=== PATIENT | female | born 2000 | race Caucasian/White ===

== ENCOUNTER 2018-12-10 03:15 | Inpatient (IN) | payer BC ==
--- NOTE | 2018-12-10 03:41 | PN ---
Progress Note - Progress Note Date of Service: 12/10/18 Note: S: Reports contractions beginning about 1:30am. Uncomfortable, breathing through UCs. Reports active FM O: B/P: 131/94, P: 77, R: 20, T: 97.9 FHR: baseline 125, moderate variability, +accelerations, no decelerations UCs: q 1.5-3, moderate to palpation VE: 2.5/70/-2, posterior A: IUP at 39 3/7 weeks Category I FHR, no evidence of metabolic acidemia Early labor vs false labor P: Will reassess in 2 hrs or sooner as indicated RN at bedside encouraging position changes, tub
[2018-12-10] MEDS ORDERED: Lactated Ringers 1000 ML Bag* 1,000 ML IV ONE ×2 (05:27→07:57)
[2018-12-10] MEDS ORDERED: Buffered Lidocaine 1% SYRIN* 1 ML/SYRINGE INTRADERM ONE (05:27)
[2018-12-10] MEDS ORDERED: Promethazine INJ(RESTRICTED)* 25 MG/ML 1 ML VIAL IV ONE (05:30)
[2018-12-10] MEDS ORDERED: Nalbuphine* 10 MG/ML 1 ML VIAL IV ONE (05:30)
--- NOTE | 2018-12-10 05:32 | HP ---
General Information - Reason for Visit at 39 3/7 weeks with contractions - General Information Maternal Age: 18 Grav: 1 Para: 0 SAB: 0 IEA: 0 Estimated Due Date: 12/14/18 Determined By: Early Ultrasound Maternal Blood Type and Rh: O Positive - Results this Serology/RPR Result: Non-Reactive Rubella Result: Immune HBsAg Result: Negative HIV Result: Negative GBS Culture Result: Negative Past Medical History Delivery History Comment: no prior deliveries Pertinent Past Medical History: See Records Past Medical History Comment: Anxiety/Depression: on Effexor, working with therapist Pertinent Past Surgical History: None Pertinent Family History: Non-Contributory - Antepartal Records Antepartal Records: Reviewed, Complicated by: - Depression/anxiety, positive UDS for THC in early Review of Systems Constitutional: Uncomfortable CV Complaint: No Respiratory: Shortness of Breath: No Gastrointestinal: No Nausea/Vomiting, Normal Bowel Movement Genitourinary: No Dysuria, No Bleeding, No Leaking Fluid Musculoskeletal: No Epigastric Pain, Contractions Neurological: No Headache, No Visual Changes Movement: Normal Exam Allergies/Adverse Reactions: Allergies chlorpromazine [From Thorazine] Allergy (Verified 12/10/18 04:12) See Comment orthostatic hypotension and dizziness B/P: 131/94, P: 77, R: 18, T: 97.9 - Measurements Height: 5 ft 2 in Weight: 149 lb Weight in lbs: 149.248576 Body Mass Index (BMI): 27.2 Pre- Weight: 110 lb Weight Gained This : 39 lbs and 0 ozs - Exam Breast: Breast Exam Deferred CVA: No CVA Tenderness Extremities: No Edema Heart: Normal Rhythm/Heart Sounds HEENT: No Significant Findings Lungs: Clear Bilaterally Reflexes: DTR 2+ Thyroid: No Thyromegaly - Abdominal Exam Abdomen Exam: Non-Tender, Fundal Height Consistent with Dates - Ultrasound/Biophysical Profile Ultrasound Status: Not Done Targeted Exam Findings Estimated Weight: 7.5 lb by megha Cervical Exam: 3cm Effacement: 90% Station: -2 Presenting Part: Vertex Membrane Status: Bulging Bleeding/Discharge: None EFM Findings - External Monitor Findings Baseline Heart Rate: 130 External Monitor Findings: Accelerations Present, No Pattern of Variable or Late Decelerations, Variability Moderate, Baseline Stable Contractions: Regular, Moderate, 45-90 Seconds Contraction Frequency: 2-4 min Assessment/Plan - Assessment A: IUP at 39 3/7 weeks Category I FHR, no evidence of metabolic acidemia Early labor GBS negative P: Admit to inpatient Pt desires pain relief, plans epidural eventually. Will give nubain/ phenergan for therapeutic rest now Draw CBC/Type & Screen, initiate IV access Reassess PRN Anticipate SVB
[2018-12-10 05:54] LABS: Hematocrit 40 % (35-47); Hemoglobin 13.3 g/dL (12.0-16.0); Mean Corpuscular HGB Conc 34 g/dL (31-36); Mean Corpuscular Hemoglobin 30 pg (27-31); Mean Corpuscular Volume 88 fL (80-97); Mean Platelet Volume 8.6 fL (7.4-10.4); Platelet Count 177 10^3/uL (150-450); Red Blood Count 4.49 10^6 /uL (3.70-4.87); Red Cell Distribution Width 14 % (10.5-15); White Blood Count 9.5 10^3/uL (3.5-10.8)
[2018-12-10] MEDS ORDERED: Lactated Ringers 1000 ML Bag* 1,000 ML IV SCH ×3 (06:00→16:00)
--- NOTE | 2018-12-10 07:04 | PN ---
Progress Note - Progress Note Date of Service: 12/10/18 Note: Quick note: Received nubain/phenergan for therapeutic rest, SROM to clear fluid around 0600 per RN. Patient now sleeping, VE deferred.
[2018-12-10] MEDS ORDERED: OBEPIDURAL* 250 ML EPIDURAL ONE (07:31)
[2018-12-10] MEDS ORDERED: Sodium Citrate/Citric Acid* 15 ML UDC PO PRN (07:57)
[2018-12-10] MEDS ORDERED: Famotidine TAB* 20 MG PO PRN (07:57)
[2018-12-10] MEDS ORDERED: Phenylephrine 40 MCG/ML SYRINGE IV PUSH PRN ×2 (07:57)
[2018-12-10] MEDS ORDERED: OBEPIDURAL* 250 ML EPIDURAL SCH (08:00)
--- NOTE | 2018-12-10 08:47 | PN ---
Progress Note - Progress Note Date of Service: 12/10/18 SOAP: Subjective: Pt comfortable with epidural, sleepy. Mother at bedside. FOB heading up from [place] , pt states she is okay with him being there, but not "if he starts making it all about himself." Plan made with pt and her mother that if pt wants him out of the room, she will state that she wants to be checked, and we will ask him to step out to give her a chance to express her preferences in private. Objective: Cervical exam deferred Fluid clear FHR baseline 120, moderate variability, + accels, no decels, moderate variability UCs, every 1-2 minutes, lasting 40 seconds BP 104/66 Assessment: Pt comfortable with epidural, no evidence of chorioamnionitis or acidemia. Contraction pattern somewhat atypical. Plan: Monitor ctx pattern and FHR. Will recheck in a few hours or as needed. Anticipate .
--- NOTE | 2018-12-10 12:17 | PN ---
Progress Note - Progress Note Date of Service: 12/10/18 SOAP: Subjective: Pt continues to feel comfortable. Mother at bedside. Objective: Cervix: fully dilated, +1-2, vtx FHR: Category I Assessment: Fully dilated, no urge to push, no evidence of acidemia or chorioamnionitis Plan: Initiate pushing, anticipate .
--- NOTE | 2018-12-10 13:49 | PN ---
Progress Note - Progress Note Date of Service: 12/10/18 Note: Pt pushing with ctx with slow but steady descent. FHR Category 1. Temp 99.4. UCs Q 3-4 minutes. Anticipate .
[2018-12-10] MEDS ORDERED: Oxytocin in LR* 20 UNITS/1,000 ML BAG IVPB ONE (14:35)
[2018-12-10] MEDS ORDERED: Witch Hazel PAD* JAR TOPICAL PRN (15:01)
[2018-12-10] MEDS ORDERED: Dibucaine 1% 28.35 GM TUBE PR PRN (15:01)
[2018-12-10] MEDS ORDERED: Acetaminophen TAB* 325 MG PO PRN (15:01)
[2018-12-10] MEDS ORDERED: Tetan/Diph/Pertus SYR(Tdap)* 0.5 ML SYR(BOOSTRIX) use SYR IM ONE (15:01)
[2018-12-10] MEDS ORDERED: Glycerin ADULT SUPP PR PRN (15:01)
--- NOTE | 2018-12-10 15:25 | PROCNOTE ---
[facility]: Delivery Note - Delivery A Date of : 12/10/18 Time of : 14:30 Lavina Sex: Female Weight at : 2.96 kg Score 1 Minute: 8 Score 5 Minutes: 9 Gestational Age in Weeks and Days at Delivery: 39 Weeks and 3 Days Delivery Method: Spontaneous Vaginal Labor: Spontaneous Did Patient attempt ?: N/A, No Previous Amniotic Fluid: Clear Estimated Blood Loss: 400 Anesthesia/Analgesia: CEI for Labor Delivered By: Inna Harper - Nursery Level of Nursery: Regular/Bedside - Perineum Perineal Injury: 2nd Degree Perineal Repair: By Delivering Practioner - Events Delivery Events of Note: Pitocin Only After Delivery - Additional Delivery Notes Additional Delivery Notes: Pt admitted to L&D in active labor. She initially received Nubain and Phenergan for pain relief before requesting and receiving an epidural with good relief. Pt made steady progress. At complete dilation pushing initiated. Pt coached with pushing and made slow but steady descent. Pt eventually brought infant to and was coached through slow, controlled delivery of head. Shoulders followed easily and infant placed on maternal abdomen with vigorous cry, good tone, HR> 100. After pulsation ceased cord clamped x2 and cut by 's grandmother. Placenta soon delivered with gentle cord traction, darnell side. Pitocin initiated via IV. Large clot expressed with fundal massage, after which bleeding was minimal. Inspection of the perineum revealed second degree laceration, repaired using 3-0 Rapide suture resulting in good hemostasis and tissue approximation. Pt and infant stable at this time, anticipate normal course.
[2018-12-10] MEDS ORDERED: Oxytocin in LR* 20 UNITS/1,000 ML BAG IVPB SCH (16:00)
[2018-12-10] MEDS: Ibuprofen TAB* 600 MG PO PRN (18:11)
[2018-12-10] MEDS: Docusate CAP* 100 MG PO SCH (21:48)
[2018-12-11] MEDS: Ibuprofen TAB* 600 MG PO PRN ×3 (04:02→21:19)
[2018-12-11 07:05] LABS: ABS Eosinophils 0.1 10^3/ul (0-0.6); ABS Lymphocytes 3.2 10^3/ul (1.0-4.8); ABS Monocytes 1.1 10^3/ul (0-0.8); ABS Neutrophils 8.8 10^3/ul (1.5-7.7); Eosinophil % 0.6 %; Hematocrit 32 % (35-47); Hemoglobin 10.5 g/dL (12.0-16.0); Lymphocyte % 24.1 %; Mean Corpuscular HGB Conc 33 g/dL (31-36); Mean Corpuscular Hemoglobin 29 pg (27-31); Mean Corpuscular Volume 89 fL (80-97); Mean Platelet Volume 8.4 fL (7.4-10.4); Platelet Count 140 10^3/uL (150-450); Red Cell Distribution Width 14 % (10.5-15); White Blood Count 13.2 10^3/uL (3.5-10.8)
[2018-12-11] MEDS ORDERED: Ferrous Gluconate TAB* 324 MG TAB PO SCH (09:00)
[2018-12-11] MEDS: Docusate CAP* 100 MG PO SCH ×3 (09:31→21:20)
[2018-12-11] MEDS ORDERED: Venlafaxine EXT RELEASE CAP* 75 MG PO SCH (21:00)
[2018-12-12] MEDS: Docusate CAP* 100 MG PO SCH (08:37)
[2018-12-12] MEDS: Ibuprofen TAB* 600 MG PO PRN (08:37)
[2018-12-12 08:58] VITALS: BP 128/81
--- NOTE | 2018-12-12 11:01 | PTEDU ---
Patient Name: QUETA OLIVARES QUETA OLIVARES selected video: Never Ever Shake a Baby to view on 12/12/2018 at 11:01:01 AM from [facility] [id number]
--- NOTE | 2018-12-12 11:10 | PTEDU ---
Patient Name: QUETA OLIVARES QUETA OLIVARES selected video: BBOB: Bonding Through Infant Massage to view on 12/12/2018 at 11:10:1 5 AM [id number]
== END 2018-12-12 12:40 | disposition home or self-care (01) | DRG 560 ==
LOC: MCHOBOUT 03:15 → MCHOB 05:31
PROVIDERS: ADMIT Midwife; ATTEND Midwife
PROC: 10E0XZZ Delivery of Products of Conception, External Approach (ICD-10-PCS; principal; 2018-12-10)
PROC: 0KQM0ZZ Repair Perineum Muscle, Open Approach (ICD-10-PCS; 2018-12-10)
DX: O99.344 Other mental disorders complicating childbirth (principal); Z37.0 Single live birth; F41.8 Other specified anxiety disorders; O70.1 Second degree perineal laceration during delivery; Z3A.39 39 weeks gestation of pregnancy
CPT/HCPCS: 36415; 85025; 85027; 86850; 86900; 86901; 90715; A9270-GY; J2300; J2550

== ENCOUNTER 2019-09-27 17:20 | Emergency (ER) | payer BC ==
[2019-09-27 17:31] VITALS: BP 107/68
--- NOTE | 2019-09-27 19:09 | UC ---
FLU HPI - HPI Summary HPI Summary: 19-year-old female presenting with dry cough, nasal congestion and body aches, chills 3 days. Denies sore throat. Denies shortness breath and wheezing. Denies nausea and vomiting. Denies fevers. Denies changes in appetite. Patient states she thinks they are "just cold symptoms" but that she would like to be tested for the flu because her younger brother had it recently. - History of Current Complaint Chief Complaint: UCRespiratory Stated Complaint: BODYACHES/COUGH Hx Obtained From: Patient Hx Last Menstrual Period: 02/2018 Pain Intensity: 2 Pain Scale Used: 0-10 Numeric - Allergy/Home Medications Allergies/Adverse Reactions: Allergies Allergy/AdvReac Type Severity Reaction Status Date / Time chlorpromazine Allergy See Comment Verified 09/27/19 17:31 [From Thorazine] Home Medications: Home Medications Venlafaxine CAP (NF) [Effexor CAP (NF)] 75 mg PO DAILY 12/10/18 [History Confirmed 09/27/19] Acetaminophen TAB* [Tylenol TAB*] 650 mg PO Q4H PRN tab 12/12/18 [Rx Confirmed 09/27/19] Ibuprofen TAB* [Motrin TAB* 600 MG] 600 mg PO Q6H PRN tab 12/12/18 [Rx Confirmed 09/27/19] Diphenhydra/Phenyleph/Acetamin [Cold & Flu Relief Multi-Sym Lq] 180 ml PO Q12HR 09/27/19 [History Confirmed 09/27/19] PMH/Surg Hx/FS Hx/Imm Hx Previously Healthy: Yes - Surgical History Surgical History: None - Family History Known Family History: Positive: Other Family History: Brother - ADHD. Biological father - EtOH dependence. M/F - anxiety. - Social History Alcohol Use: None Alcohol Amount: per prenatals none since Substance Use Type: None Substance Use Comment - Amount & Last Used: Pt. reports having used 2 or 3 times since last March Smoking Status (MU): Former Smoker - Immunization History Most Recent Influenza Vaccination: fall Most Recent Pneumonia Vaccination: never Review of Systems All Other Systems Reviewed And Are Negative: Yes Constitutional: Positive: Chills ENT: Positive: Sinus Congestion Respiratory: Positive: Cough. Negative: Shortness Of Breath Cardiovascular: Positive: Negative Gastrointestinal: Positive: Negative Musculoskeletal: Positive: Myalgia Neurological/Mental Status: Positive: Negative Physical Exam - Summary Physical Exam Summary: Vital Signs Reviewed: Yes A+Ox3, no distress, well-appearing Eyes: Conjunctiva Clear ENT: Hearing grossly normal, TM x 2 clear, moist, uvula midline, no exudate, no erythema Neck: Positive: Supple Respiratory: Positive: No respiratory distress, No accessory muscle use + CTA throughout no w/r Cardiovascular: RRR nl s1, s2 no m/r Musculoskeletal Exam: HARRY x 4 without difficulty Neurological: Positive: Alert Psychological: Positive: age appropriate behavior Skin: Positive: no rash, no ecchymosis Vital Signs: Initial Vital Signs Temp 98 F 09/27/19 17:25 Pulse 76 09/27/19 17:25 Resp 12 09/27/19 17:25 BP 107/68 09/27/19 17:25 Pulse Ox 98 09/27/19 17:25 Lab Results 09/27/19 Range/Units 19:16 Influenza B (Rapid) Positive H (Negative) Flu Course/Dx - Course Course Of Treatment: Positive influenza B. I discussed influenza and symptomatic treatment with patient. Instructed to continue to get plenty of rest and fluids and to follow up with PCP or [facility] if symptoms persist. Instructed to go to ED with any new or worsening symptoms. Patient voiced understanding and agree with treatment plan. - Differential Dx/Diagnosis Differential Diagnosis/HQI/PQRI: Influenza, Upper Respiratory Infection Provider Diagnosis: Influenza B Discharge ED - Sign-Out/Discharge Documenting (check all that apply): Patient Departure All imaging exams completed and their final reports reviewed: No Studies - Discharge Plan Condition: Stable Disposition: HOME Patient Education Materials: Influenza (ED) Referrals: [facility] [Outside] Additional Instructions: As discussed, you tested positive for influenza B today. Your symptoms should resolve over time without treatment. You may continue with [id number] cold and flu medications as directed. Get plenty of rest and increase your fluid intake. Follow up with your primary care provider or the [facility] clinic listed below if symptoms do not improve within 5-7 days. - Billing Disposition and Condition Condition: STABLE Disposition: Home
[2019-09-27 19:23] LABS: Influenza B Molecular POSITIVE (Negative)
== END 2019-09-27 19:45 | disposition home or self-care (01) ==
LOC: UCEAST 17:20
DX: J10.1 Influenza due to other identified influenza virus with other respiratory manifestations (principal); Z88.8 Allergy status to other drugs, medicaments and biological substances; Z87.891 Personal history of nicotine dependence
CPT/HCPCS: 99211; G0463

== ENCOUNTER 2021-12-18 14:23 | Inpatient (IN) ==
[2021-12-18 16:45] LABS: Urine Benzodiazepine Screen Presumptive Positive (None Detect); Urine Cannabinoids Screen Presumptive Positive (None Detect); Urine Opiates Screen None Detected (None Detect)
[2021-12-18] MEDS ORDERED: Nicotine PATCH 21 MG/24 HR PATCH TRANSDERM ONE (20:38)
[2021-12-18] MEDS ORDERED: Nicotine GUM 2MG FRUIT FLAVOR PO PRN ×2 (20:38→23:00)
[2021-12-18] MEDS ORDERED: Al Hydrox/Mg Hydrox/Simet LIQ 30 ML UDC PO PRN (22:17)
[2021-12-19] MEDS: Vitamin THERAPEUTIC TAB PO SCH (07:36)
[2021-12-19] MEDS: Nicotine PATCH 21 MG/24 HR PATCH TRANSDERM SCH (08:15)
[2021-12-19] MEDS ORDERED: Venlafaxine XR 75 mg PO SCH (09:00)
[2021-12-20] MEDS: Nicotine PATCH 21 MG/24 HR PATCH TRANSDERM SCH (07:25)
[2021-12-20] MEDS: Vitamin THERAPEUTIC TAB PO SCH (07:26)
[2021-12-20 08:08] VITALS: BP 105/72
[2021-12-20] MEDS ORDERED: Venlafaxine XR 75 mg PO SCH (09:00)
== END 2021-12-20 14:00 | disposition home or self-care (01) | DRG 754 ==
LOC: ED 14:23 → BSU 20:10
PROVIDERS: ADMIT Psychiatry & Neurology Psychiatry; ATTEND Psychiatry & Neurology Psychiatry

== ENCOUNTER 2023-10-29 17:47 | Inpatient (IN) ==
[2023-10-29 19:28] LABS: Urine Appearance Clear; Urine Bilirubin Negative (Negative); Urine Blood Negative (Negative); Urine Color Colorless; Urine Glucose Negative (Negative); Urine Ketones Negative (Negative); Urine Nitrite Negative (Negative); Urine Protein Negative (Negative); Urine Specific Gravity 1.003 (1.002-1.030); Urine Urobilinogen Negative (Negative); Urine pH 6.5 (5.0-8.0)
[2023-10-29 19:44] LABS: ABS Basophils 0.1 10^3/uL (0.0-0.1); ABS Eosinophils 0.1 10^3/uL (0.0-0.5); ABS Lymphocytes 2.6 10^3/uL (1.0-4.8); ABS Monocytes 0.8 10^3/uL (0.0-0.9); ABS Neutrophils 6.4 10^3/uL (1.5-7.6); ABS Nucleated RBC 0.01 10^3/ul; Eosinophil % 1.1 %; Hematocrit 38.4 % (35-45); Lymphocyte % 26.2 %; Mean Corpuscular Hemoglobin 33.9 pg (27-33); Mean Corpuscular Hgb Conc 33.8 g/dL (31-36); Mean Corpuscular Volume 100.1 fL (80-97); Mean Platelet Volume 6.8 fL (7.5-11.2); Nucleated Red Blood Cells % 0.1 %/100WBC (0.0-0.8); Platelet Count 274 10^3/uL (150-450); Red Blood Count 3.83 10^6/uL (3.63-4.92); Red Cell Distribution Width 13.6 % (12-17); White Blood Count 9.9 10^3/uL (3.8-11.8)
[2023-10-29 20:02] LABS: Urine Benzodiazepine Screen None Detected (None Detect); Urine Cannabinoids Screen Presumptive Positive (None Detect); Urine Opiates Screen None Detected (None Detect)
[2023-10-29] MEDS: Nicotine PATCH 21 MG/24 HR PATCH TRANSDERM ONE (20:14)
[2023-10-29] MEDS: DULoxetine DR 60 mg CAP PO ONE (20:20)
[2023-10-29 20:27] LABS: ALT 15 U/L (7-52); AST 15 U/L (13-39); Acetaminophen < 15 mcg/mL; Albumin 3.9 g/dL (3.2-5.2); Albumin/Globulin Ratio 1.9 (1-3); Alcohol, S < 13 mg/dL (<13); Alkaline Phosphatase 58 U/L (35-149); Anion Gap 3 mmol/L (2-16); Blood Urea Nitrogen 6 mg/dL (6-24); CO2 Carbon Dioxide 33 mmol/L (22-32); Calcium 9.4 mg/dL (8.6-10.3); Chloride 101 mmol/L (101-111); Globulin 2.1 g/dL (2-4); Glucose 90 mg/dL (70-100); Potassium 4.1 mmol/L (3.5-5.0); Salicylate < 2.50 mg/dL (<30); Sodium 137 mmol/L (135-145); Total Bilirubin 0.2 mg/dL (0.2-1.0)
[2023-10-29 20:41] LABS: TSH Ultra Thyroid Stim Horm 1.63 mcIU/mL (0.34-5.60)
[2023-10-30] MEDS ORDERED: Al Hydrox/Mg Hydrox/Simet LIQ 30 ML UDC PO PRN (01:20)
[2023-10-30] MEDS ORDERED: Nicotine GUM 2MG FRUIT FLAVOR PO PRN (02:00)
[2023-10-30] MEDS: Vitamin THERAPEUTIC TAB PO SCH (14:58)
[2023-10-30] MEDS: Nicotine PATCH 21 MG/24 HR PATCH TRANSDERM SCH (18:43)
[2023-10-30] MEDS: DULoxetine DR 60 mg CAP PO SCH (20:25)
[2023-10-31 08:36] LABS: HDL Cholesterol 61.2 mg/dL
[2023-10-31 20:51] VITALS: BP 130/94
== END 2023-11-03 10:56 | disposition home or self-care (01) | DRG 751 ==
LOC: ED 17:47 → BSU 10-30 00:05
PROVIDERS: ADMIT Psychiatry & Neurology Psychiatry; ATTEND Psychiatry & Neurology Psychiatry

== ENCOUNTER 2023-11-14 18:35 | Inpatient (IN) ==
[2023-11-14 20:26] LABS: Urine Appearance Turbid; Urine Bilirubin Negative (Negative); Urine Blood Negative (Negative); Urine Color Yellow; Urine Glucose Negative (Negative); Urine Ketones 1+ (Negative); Urine Nitrite 2+ (Negative); Urine Protein 1+ (>=30 mg/dL) (Negative); Urine Specific Gravity 1.024 (1.002-1.030); Urine Urobilinogen Negative (Negative); Urine pH 6.5 (5.0-8.0)
[2023-11-14 20:28] LABS: ABS Eosinophils 0.1 10^3/uL (0.0-0.5); ABS Lymphocytes 2.4 10^3/uL (1.0-4.8); ABS Monocytes 0.8 10^3/uL (0.0-0.9); ABS Neutrophils 5.6 10^3/uL (1.5-7.6); ABS Nucleated RBC 0.01 10^3/ul; Hematocrit 40.9 % (35-45); Hemoglobin 13.7 g/dL (11.5-14.3); Lymphocyte % 27.1 %; Mean Corpuscular Hemoglobin 32.8 pg (27-33); Mean Corpuscular Hgb Conc 33.4 g/dL (31-36); Mean Corpuscular Volume 98.5 fL (80-97); Mean Platelet Volume 6.6 fL (7.5-11.2); Nucleated Red Blood Cells % 0.1 %/100WBC (0.0-0.8); Platelet Count 318 10^3/uL (150-450); Red Blood Count 4.16 10^6/uL (3.63-4.92); Red Cell Distribution Width 13.2 % (12-17); White Blood Count 8.9 10^3/uL (3.8-11.8)
[2023-11-14 20:29] LABS: Urine Bacteria 1+ /HPF (Absent); Urine Red Blood Cell 2+(6-10/hpf) /HPF (0-Trace); Urine Squamous Epithelial Cell Present /HPF (Absent); Urine White Blood Cell 3+(>20/hpf) /HPF (0-Trace)
[2023-11-14] MEDS: Nicotine PATCH 21 MG/24 HR PATCH TRANSDERM ONE (20:47)
[2023-11-14 20:48] LABS: Urine Benzodiazepine Screen None Detected (None Detect); Urine Cannabinoids Screen Presumptive Positive (None Detect); Urine Opiates Screen None Detected (None Detect)
[2023-11-14] MEDS: Lidocaine PATCH 5% PATCH TRANSDERM ONE (20:48)
[2023-11-14 21:11] LABS: ALT 12 U/L (7-52); AST 16 U/L (13-39); Acetaminophen < 15 mcg/mL; Albumin 4.3 g/dL (3.2-5.2); Albumin/Globulin Ratio 1.8 (1-3); Alcohol, S < 13 mg/dL (<13); Alkaline Phosphatase 59 U/L (35-149); Anion Gap 10 mmol/L (2-16); Blood Urea Nitrogen 11 mg/dL (6-24); CO2 Carbon Dioxide 31 mmol/L (22-32); Calcium 9.7 mg/dL (8.6-10.3); Chloride 98 mmol/L (101-111); Creatinine, Serum 0.81 mg/dL (0.51-0.95); Globulin 2.4 g/dL (2-4); Glucose 90 mg/dL (70-100); Potassium 3.5 mmol/L (3.5-5.0); Salicylate < 2.50 mg/dL (<30); Sodium 139 mmol/L (135-145); Total Bilirubin 0.4 mg/dL (0.2-1.0); Total Protein 6.7 g/dL (6.4-8.9); eGFR CKD-EPI 103.2 (>60)
[2023-11-14 21:17] LABS: HCG Pregnancy < 0.60 mIU/mL
[2023-11-14 21:25] LABS: TSH Ultra Thyroid Stim Horm 0.75 mcIU/mL (0.34-5.60)
[2023-11-14] MEDS: Bacitracin OINTMENT TUBE TOPICAL ONE (22:01)
[2023-11-15] MEDS ORDERED: Al Hydrox/Mg Hydrox/Simet LIQ 30 ML UDC PO PRN (01:04)
[2023-11-15] MEDS: Vitamin THERAPEUTIC TAB PO SCH (10:31)
[2023-11-15] MEDS: Nicotine PATCH 21 MG/24 HR PATCH TRANSDERM SCH (10:31)
[2023-11-15] MEDS: DULoxetine DR 60 mg CAP PO SCH (20:55)
[2023-11-15] MEDS: Nicotine GUM 4MG FRUIT FLAVOR PO ONE (21:05)
[2023-11-16 08:34] LABS: HDL Cholesterol 55.9 mg/dL
[2023-11-17] MEDS: Nicotine Lozenge mini 4 MG LOZNG.MINI MT PRN (15:50)
[2023-11-17] MEDS: Nicotine GUM 4MG FRUIT FLAVOR PO PRN (19:15)
[2023-11-20] MEDS: COVID VAC 23-24(12+)(Moderna) SYR 0.5 ML IM ONE (11:11)
[2023-11-24 08:10] VITALS: BP 131/79
== END 2023-11-24 14:12 | disposition home or self-care (01) | DRG 776 ==
LOC: ED 18:35 → EDHOLD 11-15 01:04 → BSU 11-15 01:43
PROVIDERS: ADMIT Psychiatry & Neurology Addiction Psychiatry; ATTEND Student in an Organized Health Care Education/Training Program